=== PATIENT | female | born 1950 | race Caucasian/White ===

== ENCOUNTER → 2017-04-06 | Outpatient (CLI) | payer MEDICARE ==
[~2017-04-06] MED LIST: ANTIBIOTIC PO; BACTRIM DS 8001 TA1 PO; ESTROGEN CREME; FISH OIL500 MG PO; FOLIC ACID 1MG T1 MG PO; MACRODANTIN50 MG PO; OSTEO BI-FLEX1 EAC1 PO; VICODIN 5/500 T1 TAB PO
[2017-04-06 10:38] LABS: HEMOGLOBIN 13.4 g/dL (12.2-16.2); LYMPH # 1.9 K/mm3 (0.7-4.5)
[2017-04-06 13:11] LABS: BUN 7 mg/dL (7-18)
[2017-04-06 13:21] LABS: GFR (ESTIMATED) 83 ML/MIN (59-)
== END ==
LOC: LAB 10:01
PROVIDERS: Family Medicine
DX: E78.5 Hyperlipidemia, unspecified (principal); R63.5 Abnormal weight gain

== ENCOUNTER → 2017-04-09 | Outpatient (CLI) | payer MEDICARE ==
--- NOTE | 2017-04-09 15:41 | RADIOLOGY REPORT PS360 ---
US SPLEEN (ABD LTD) CLINICAL INDICATION: Splenic artery aneurysm SPLENIC ARTERY ANEURYSM ORDERING PHYSICIAN: Tara Fisher MD PATIENT AGE: 66 years COMPARISON: CT scan of 01/01/2016 FINDINGS: The spleen has an unremarkable appearance measuring up to 12 cm with homogeneous echogenicity. There is dense shadowing within the hilum of the spleen which may correspond to the partially calcified splenic artery aneurysm as noted on the previous CT scan. However cannot adequately determine the size of the aneurysm on ultrasound. CT would be better for evaluation of the splenic artery aneurysm size is clinically warranted. IMPRESSION: 1. Dense shadowing in the hilum of the spleen probably representing the splenic artery aneurysm which may be better evaluated with CT if clinically warranted. 2. Otherwise negative ultrasound of the spleen
== END ==
LOC: RAD 07:43
DX: I72.8 Aneurysm of other specified arteries (principal)

== ENCOUNTER → 2017-04-16 | Outpatient (CLI) | payer MEDICARE ==
--- NOTE | 2017-04-16 13:59 | RADIOLOGY REPORT PS360 ---
[id number] [id number] HISTORY: RT SHOULDER PAIN ORDERING PHYSICIAN: Dick Loving MD PATIENT AGE: 66 years COMPARISON: None FINDINGS: No fracture or dislocation. No lytic or blastic change. There is normal mineralization. There is a moderate sized osteophyte projecting off the inferior surface of the acromion which may result in impingement symptomatology. Minimal osteoarthritic changes are present at the glenohumeral joint. IMPRESSION: 1. 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 Mild osteoarthritis of the glenohumeral joint
== END ==
LOC: RAD 12:47
DX: M25.511 Pain in right shoulder (principal)